=== PATIENT | female | born 1960 | race Caucasian/White ===

== ENCOUNTER 2019-07-29 20:23 | Emergency (ER) | payer BC ==
[2019-07-29 20:35] VITALS: BP 126/68; PULSE 84; TEMP 98.1; BMI 40.3
--- NOTE | 2019-07-29 20:36 | PDOC ---
Rapid Medical Evaluation Chief Complaint: Pain Time Seen by Provider: 07/29/19 20:31 Medical Evaluation: 07/29/19 20:34 I have performed a brief in-person evaluation of this patient. The patient presents with a chief complaint of: Pt is a 59 y/o female with left flank pain that started 2 days ago. She states the pain is constant and aching. She has one single kidney congenitally. She admits to dark urine. She has felt feverish but denies fevers. H/o sleep apnea. Pertinent physical exam findings: Stable, non-toxic, + Left CVA tenderness I have ordered the following: saline lock, labs, spiral CT The patient will proceed to the ED for further evaluation Discharge Disposition - Diagnosis Left flank pain - Referrals - Patient Instructions - Post Discharge Activity
[2019-07-29 22:06] LABS: EPI CELLS 0.6 /HPF (0-5/HPF); HYALINE CASTS 4 /lpf (0-8); URINE APPEARANCE CLEAR; URINE BACTERIA 0 /hpf (NEGATIVE); URINE BILIRUBIN NEGATIVE (NEGATIVE); URINE COLOR YELLOW; URINE GLUCOSE (UA) NEGATIVE (NEGATIVE); URINE KETONE NEGATIVE (NEGATIVE); URINE LEUK ESTERASE NEGATIVE (NEGATIVE); URINE NITRITE NEGATIVE (NEGATIVE); URINE PROTEIN 2+ (NEGATIVE); URINE RBC 2 /hpf (0-4); URINE UROBILINOGEN 0.2 mg/dL (0.2-1.0); URINE WBC 1 /hpf (0-5)
[2019-07-29 22:07] LABS: BASO % 0.8 % (0-2.0); EOS % 3.5 % (0-4.5); HEMATOCRIT 39.4 % (32.4-45.2); HEMOGLOBIN 12.8 GM/dL (10.7-15.3); LYMPH % 27.9 % (8-40); MCH 29.2 pg (25.7-33.7); MCHC 32.6 g/dl (32.0-36.0); MEAN CELL VOLUME 89.5 fl (80-96); MEAN PLT VOLUME 9.2 fl (7.5-11.1); MONO % 5.2 % (3.8-10.2); NEUT % 62.6 % (42.8-82.8); PLATELET COUNT 280 K/MM3 (134-434); RDW 14.6 % (11.6-15.6); WHITE BLOOD COUNT 8.2 K/mm3 (4.0-10.0)
[2019-07-29 22:40] LABS: ALBUMIN 3.7 g/dl (3.4-5.0); BILIRUBIN,TOTAL 0.3 mg/dL (0.2-1); BLOOD UREA NITROGEN 10.9 mg/dL (7-18); CALCIUM 9.1 mg/dL (8.5-10.1); CREATININE 0.6 mg/dL (0.55-1.3); POTASSIUM 4.1 mmol/L (3.5-5.1); TOT PROT 7.3 g/dl (6.4-8.2)
--- NOTE | 2019-07-30 00:43 | PDOC ---
History of Present Illness <Erika Saunders - Last Filed: 07/30/19 01:46> - General History Source: Patient Exam Limitations: No Limitations - History of Present Illness Initial Comments: 07/30/19 00:41 59y F with PMH of L solitary kidney from , HLD (not on meds) presenting to ED with complaints of L flank pain that started two days ago getting worse. The pain feels like a burning sensation and is constant, worsened by movements. She denies chest pain, sob, n/v/d, constipation, hematuria, dysuria, fevers. She had pain like this before in June but it has not been this intense. She was to see a kidney specialist but she moved here from [facility] and has not established care yet. 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 - Psycho Social/Smoking Cessation Hx Smoking History: Never smoked Have you smoked in the past 12 months: No Information on smoking cessation initiated: No Hx Alcohol Use: No Drug/Substance Use Hx: No <Rebecca Neumann - Last Filed: 07/30/19 01:54> - Past Medical History Allergies/Adverse Reactions: Allergies Allergy/AdvReac Type Severity Reaction Status Date / Time No Known Allergies Allergy Verified 07/29/19 20:35 *Physical Exam - Vital Signs Last Vital Signs Temp Pulse Resp BP Pulse Ox 98.1 F 84 18 126/68 100 07/29/19 20:32 07/29/19 20:32 07/29/19 20:32 07/29/19 20:32 07/29/19 20:32 <Erika Saunders - Last Filed: 07/30/19 01:46> - Vital Signs Last Vital Signs Temp Pulse Resp BP Pulse Ox 98.1 F 84 18 126/68 100 07/29/19 20:32 07/29/19 20:32 07/29/19 20:32 07/29/19 20:32 07/29/19 20:32 <Rebecca Neumann - Last Filed: 07/30/19 01:54> ED Treatment Course - LABORATORY CBC & Chemistry Diagram: 07/29/19 21:35 07/29/19 21:35 - ADDITIONAL ORDERS Additional order review: Laboratory Results 07/29/19 07/29/19 21:35 21:35 Sodium 139 Potassium 4.1 Chloride 104 Carbon Dioxide 28 Anion Gap 8 BUN 10.9 Creatinine 0.6 Est GFR (CKD-EPI)AfAm 114.82 Est GFR (CKD-EPI)NonAf 99.07 Random Glucose 86 Calcium 9.1 Total Bilirubin 0.3 AST 16 ALT 24 Alkaline Phosphatase 113 Total Protein 7.3 Albumin 3.7 Lipase 77 Urine Color Yellow Urine Appearance Clear Urine pH 5.0 Ur Specific [place] 1.022 Urine Protein 2+ H Urine Glucose (UA) Negative Urine Ketones Negative Urine Blood Negative Urine Nitrite Negative Urine Bilirubin Negative Urine Urobilinogen 0.2 Ur Leukocyte Esterase Negative Urine WBC (Auto) 1 Urine RBC (Auto) 2 Urine Casts (Auto) 4 U Epithel Cells (Auto) 0.6 Urine Bacteria (Auto) 0 07/29/19 21:35 RBC 4.40 MCV 89.5 MCHC 32.6 RDW 14.6 MPV 9.2 Neutrophils % 62.6 Lymphocytes % 27.9 Monocytes % 5.2 Eosinophils % 3.5 Basophils % 0.8 - Medications Given in the ED: ED Medications Discontinued Medications Generic Name Dose Route Start Last Admin Trade Name Freq PRN Reason Stop Dose Admin Ketorolac Tromethamine 60 mg 07/30/19 00:48 07/30/19 01:15 Toradol Injection - IM 07/30/19 00:49 60 mg ONCE ONE Administration <Erika Saunders - Last Filed: 07/30/19 01:46> - LABORATORY CBC & Chemistry Diagram: 07/29/19 21:35 07/29/19 21:35 - ADDITIONAL ORDERS Additional order review: Laboratory Results 07/29/19 07/29/19 21:35 21:35 Sodium 139 Potassium 4.1 Chloride 104 Carbon Dioxide 28 Anion Gap 8 BUN 10.9 Creatinine 0.6 Est GFR (CKD-EPI)AfAm 114.82 Est GFR (CKD-EPI)NonAf 99.07 Random Glucose 86 Calcium 9.1 Total Bilirubin 0.3 AST 16 ALT 24 Alkaline Phosphatase 113 Total Protein 7.3 Albumin 3.7 Lipase 77 Urine Color Yellow Urine Appearance Clear Urine pH 5.0 Ur Specific [place] 1.022 Urine Protein 2+ H Urine Glucose (UA) Negative Urine Ketones Negative Urine Blood Negative Urine Nitrite Negative Urine Bilirubin Negative Urine Urobilinogen 0.2 Ur Leukocyte Esterase Negative Urine WBC (Auto) 1 Urine RBC (Auto) 2 Urine Casts (Auto) 4 U Epithel Cells (Auto) 0.6 Urine Bacteria (Auto) 0 07/29/19 21:35 RBC 4.40 MCV 89.5 MCHC 32.6 RDW 14.6 MPV 9.2 Neutrophils % 62.6 Lymphocytes % 27.9 Monocytes % 5.2 Eosinophils % 3.5 Basophils % 0.8 <Rebecca Neumann - Last Filed: 07/30/19 01:54> Medical Decision Making - Medical Decision Making 07/30/19 01:46 CAT scan abdomen and pelvis for left flank pain findings lung bases are clear Visualized cardiac chambers are normal size Right kidney is severely atrophic presumably chronic There is a normal liver, gallbladder pancreas spleen adrenals and left kidney The stomach and abdominal small and large bowels are normal There is no aortic aneurysm Is no significant retroperitoneal lymphadenopathy The appendix is normal Status post hysterectomy There is a 16mm posterior left pelvic cyst most likely ovarian cyst urinary bladder is unremarkable There is no pelvic free fluid, no discrete pelvic lymphadenopathy impression severe chronic right renal atrophy and, small left ovarian cyst, no acute pathology <Erika Saunders - Last Filed: 07/30/19 01:46> Discharge <Erika Saunders - Last Filed: 07/30/19 01:46> - Discharge Information Problems reviewed: Yes - Admission No <Rebecca Neumann - Last Filed: 07/30/19 01:54> - Discharge Information Clinical Impression/Diagnosis: Left flank pain Condition: Good Disposition: HOME - Follow up/Referral Referrals: [facility] [Provider Group] Amanda Miller MD [Staff Physician] - Martínez Way MD [Staff Physician] - Long Zayas MD [Staff Physician] - Yaron Bah MD [Staff Physician] - Nadiya Rae MD [Staff Physician] - - Patient Discharge Instructions Patient Printed Discharge Instructions: DI for Flank Pain Additional Instructions: You were seen in the ER for flank pain. The blood work is normal, your kidney is functioning well! I do not know the exact cause of your pain, but it could be musculoskeletal. You have protein in the urine, I recommend following up with a mirror department supervisor. I have provided information for a primary care clinic and nephrologists in the area. There is also a clinic on [address] [place] [address] which takes walk ins. You can take Tylenol or ibuprofen for the pain as needed. Do not take more than 1800mg ibuprofen/Advil in a day. You can also try ice and heating pads. Come back to the ER if you have worsening pain, if the pain does not go away with medication, if you develop fever or if any new or concerning symptom develops. Thank you
[2019-07-30] MEDS ORDERED: KETOROLAC TROMETHAMINE 60 MG/2 ML VIAL IM ONE (00:48)
[2019-07-30] MEDS ORDERED: ACETAMINOPHEN INJECTION 100 ML IVPB ONE (00:50)
[2019-07-30] MEDS ORDERED: KETOROLAC TROMETHAMINE 60 MG/2 ML VIAL ONE (00:51)
--- NOTE | 2019-07-30 00:59 | PDOC ---
Documentation entered by Naa Noble SCRIBE, acting as scribe for Erika Saunders MD. Erika Saunders MD: This documentation has been prepared by the Real elizabeth Brenda, SCRIBE, under my direction and personally reviewed by me in its entirety. I confirm that the documentation accurately reflects all work, treatment, procedures, and medical decision making performed by me. 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 Patient reports that pain is aggravated by movement. Patient also endorses dark urine and subjective fever. Recently moved from [place], so has not been able to find a specialist. Allergies: NKA - Physicial Exam PE: 07/30/19 00:55 wnwd 59 yo female with several days of flank pain head ncat neck supple lungs cta b/l cvs [id number] abdomen no rebound,no guarding skin warm and dry ext no edema neuro axox3 psych appropriate - Medical Decision Making 07/30/19 00:57 59-year-old female with flank pain but no fever chills nausea or vomiting or dysuria or hematuria CBC was unremarkable there was no leukocytosis or anemia Urinalysis was negative for any urinary tract infection or blood ,there was some proteinuria Chemistries were reviewed and electrolytes, renal function, glucose and LFTs are unremarkable Impression chronic atrophic kidney, proteinuria pt will be referred to our [facility] clinic at [address] [place] [address] 07/30/19 01:05
== END 2019-07-30 01:56 | disposition home or self-care (01) ==
LOC: JER 20:23
PROC: 3E0233Z Introduction of Anti-inflammatory into Muscle, Percutaneous Approach (ICD-10-PCS; principal; 2019-07-29)
DX: R80.8 Other proteinuria (principal); Q60.0 Renal agenesis, unilateral; G47.39 Other sleep apnea; Z87.42 Personal history of other diseases of the female genital tract
CPT/HCPCS: 36415; 74176-TC; 80053; 81003; 83690; 85025; 87086; 99285-25